=== PATIENT | male | born 1960 | race Caucasian/White ===

== ENCOUNTER 2018-12-20 21:01 | Emergency (ER) | payer MEDICARE ==
[2018-12-20 21:06] VITALS: TEMP 98.4
[2018-12-20] MEDS ORDERED: KETOROLAC 60 MG/2 ML VIAL IM STA (21:22)
--- NOTE | 2018-12-20 21:29 | ED ---
Upper Extremity HPI - General Chief Complaint: Extremity Injury, Upper Stated Complaint: Shoulder pain Time Seen by Provider: 12/20/18 21:09 Source: patient, family Mode of arrival: ambulatory Limitations: no limitations - History of Present Illness Initial Comments: Patient is a 58-year-old male presenting to the ER with complaints of left shoulder pain/neck pain 2 days. Patient states he has previous shoulder surgery for fractures about 30 years ago, but has been fine since. Patient states pain started about 2 days after picking [place] the airport. Describes the pain as achy, sharp at times. Patient states he is right-handed. Patient denies any falls or trauma to his shoulder. Patient states he has tried at home medications for the pain and a muscle relaxer with no improvement. Patient denies any other complaints at this time. Patient denies history of cardiac disease, numbness and tingling into the left arm/hand, shortness of breath, cough, nausea, vomiting, abdominal pain. - Related Data Previous Rx's Medication Instructions Recorded Cyclobenzaprine [Flexeril] 5 mg PO TID PRN #10 tablet 12/20/18 Ketorolac [Toradol] 10 mg PO Q8HR PRN #15 tab 12/20/18 Allergies Allergy/AdvReac Type Severity Reaction Status Date / Time Penicillins Allergy Rash/Hives Verified 12/20/18 21:06 Review of Systems ROS Statement: Those systems with pertinent positive or pertinent negative responses have been documented in the HPI. ROS Other: All systems not noted in ROS Statement are negative. Past Medical History Additional Past Medical History / Comment(s): depression anxiety History of Any Multi-Drug Resistant Organisms: None Reported Past Surgical History: Orthopedic Surgery Past Psychological History: Anxiety, Depression Smoking Status: Never smoker Past Alcohol Use History: Occasional Past Drug Use History: None Reported General Exam - General Exam Comments Initial Comments: GENERAL: Well-appearing, well-nourished and in no acute distress. HEAD: Atraumatic, normocephalic. EYES: Pupils equal round and reactive to light, extraocular movements intact, sclera anicteric, conjunctiva are normal. ENT: TMs normal, nares patent, oropharynx clear without exudates. Moist mucous membranes. NECK: Normal range of motion, supple without lymphadenopathy or JVD. LUNGS: Breath sounds clear to auscultation bilaterally and equal. No wheezes rales or rhonchi. HEART: Regular rate and rhythm without murmurs, rubs or gallops. ABDOMEN: Soft, nontender, normoactive bowel sounds. No guarding, no rebound. No masses appreciated. : Deferred EXTREMITIES: Patient has full range of motion of his left shoulder. Pain with palpation of the left upper and middle trap. Pulses are equal and bilateral. NEUROLOGICAL: Cranial nerves II through XII grossly intact. Normal speech, normal gait. PSYCH: Normal mood, normal affect. SKIN: Warm, Dry, normal turgor, no rashes or lesions noted. Limitations: no limitations Course Vital Signs 12/20/18 12/20/18 21:02 22:19 Temperature 98.4 F Pulse Rate 91 88 Respiratory 20 16 Rate Blood Pressure 177/90 158/100 O2 Sat by Pulse 99 98 Oximetry Medical Decision Making - Medical Decision Making Patient is a 58-year-old male complaining of left shoulder pain 2 days. Patient denies any recent injuries however has had previous history with his left shoulder. On exam patient is tender to palpation of the left upper and middle trapezius. Patient has pain with neck flexion. Pulses are equal bilateral. Patient denies any radiation to the left arm and numbness and tingling. Patient denies having cardiac history. Patient was given a Toradol injection which did decrease the pain. Patient was counseled on muscle spasms of the trapezius muscle. Patient was sent home with Toradol and a few days of muscle relaxer. Patient will follow up with PCP as needed for further management. Case discussed with Dr. Sena. Disposition Clinical Impression: Muscle spasm of left shoulder Disposition: HOME SELF-CARE Condition: Stable Instructions (If sedation given, give patient instructions): Shoulder Pain (ED) Additional Instructions: Please return to the Emergency Department if symptoms worsen or any other concerns. Use heat on the area. Follow-up with PCP if symptoms continue. Prescriptions: Cyclobenzaprine [Flexeril] 5 mg PO TID PRN #10 tablet PRN Reason: Muscle Spasm Ketorolac [Toradol] 10 mg PO Q8HR PRN #15 tab PRN Reason: Pain Is patient prescribed a controlled substance at d/c from ED?: No Referrals: Afshan River MD [Primary Care Provider] - 1-2 days
[2018-12-20 22:20] VITALS: BP 158/100; PULSE 88; RESP 16
== END 2018-12-20 22:20 | disposition home or self-care (01) ==
LOC: EC 21:01
DX: M62.838 Other muscle spasm (principal); M25.512 Pain in left shoulder; Z88.0 Allergy status to penicillin
CPT/HCPCS: 99283; 96372; J1885

== ENCOUNTER 2019-01-09 13:25 | Emergency (ER) | payer MEDICARE ==
--- NOTE | 2019-01-09 14:28 | ED ---
General Adult HPI - General Chief complaint: Recheck/Abnormal Lab/Rx Stated complaint: Abd pain, Body infection Time Seen by Provider: 01/09/19 14:12 Source: patient Mode of arrival: ambulatory - History of Present Illness Initial comments: Patient is a 58-year-old male presents emergency Department with blood in his semen. Patient states that has occurred a few times in the past. Patient states that both times he was treated for a testicular infection. Patient states he noticed the blood yesterday and complains of testicular discomfort rather than pain. Patient reports the discomfort is better when the testicles are elevated. Patient denies scrotal or penile rashes. Patient denies any penile discharge, hematuria, increased urgency or frequency, or obstructive uri nary symptoms. Patient denies any suprapubic, abdominal pain, back or flank pain. Patient denies any nausea or vomiting. Patient denies fever or headache. Patient denies taking medication to alleviate the symptoms. Patient states that he is in a monogamous relationship and is not concerned about STDs. Patient does have a family care physician but has not visited in few years. - Related Data Home Medications Medication Instructions Recorded Confirmed Escitalopram Oxalate [Lexapro] 10 mg PO DAILY 01/09/19 01/09/19 buPROPion HCL [Wellbutrin SR] 150 mg PO DAILY 01/09/19 01/09/19 Allergies Allergy/AdvReac Type Severity Reaction Status Date / Time Penicillins Allergy Rash/Hives Verified 01/09/19 15:18 Review of Systems ROS Statement: Those systems with pertinent positive or pertinent negative responses have been documented in the HPI. ROS Other: All systems not noted in ROS Statement are negative. Past Medical History Additional Past Medical History / Comment(s): depression anxiety History of Any Multi-Drug Resistant Organisms: None Reported Past Surgical History: Orthopedic Surgery Additional Past Surgical History / Comment(s): shoulder surgery Past Psychological History: Anxiety, Depression Smoking Status: Never smoker Past Alcohol Use History: Occasional Past Drug Use History: None Reported General Exam Limitations: no limitations General appearance: alert, in no apparent distress Head exam: Present: atraumatic, normocephalic, normal inspection Eye exam: Present: normal appearance, PERRL, EOMI Pupils: Present: normal accommodation ENT exam: Present: normal exam, mucous membranes moist, normal external ear exam Neck exam: Present: normal inspection, full ROM Respiratory exam: Present: normal lung sounds bilaterally Cardiovascular Exam: Present: regular rate, normal rhythm, normal heart sounds exam: Present: normal inspection, testicular tenderness (Right testicle on palpation), circumcision, other (Positive Phren's sign). Absent: urethral discharge, scrotal swelling, vertical testicular lie Extremities exam: Present: normal inspection, full ROM Back exam: Present: normal inspection, full ROM. Absent: tenderness, CVA tenderness (R), CVA tenderness (L) Neurological exam: Present: alert, oriented X3 Psychiatric exam: Present: normal affect, normal mood Skin exam: Present: warm, intact, normal color Course Vital Signs 01/09/19 01/09/19 01/09/19 13:43 15:41 16:00 Temperature 98.7 F 97.8 F Pulse Rate 18 L 75 93 Respiratory 181 H 19 18 Rate Blood Pressure 181/101 174/103 137/76 O2 Sat by Pulse 97 98 98 Oximetry Medical Decision Making - Medical Decision Making Patient is a 58-year-old male presents emergency Department with blood in his semen. UA showing only elevated red blood cells. Scrotal ultrasound is indicative of a varicocele on the left testicle as well as bilateral epididymal cyst. At this point I'm not suspecting an infection because the testicles are not red, tender or swollen. Also imaging is negative for infection as well. Patient advised to follow up with urology. Strict return parameters were thoroughly discussed with patient who is understanding and agreeable. Case discussed with physician. - Lab Data Lab Results 01/09/19 Range/Units 14:30 Urine Color Yellow Urine Appearance Clear (Clear) Urine pH 5.5 (5.0-8.0) Ur Specific [place] 1.014 (1.001-1.035) Urine Protein Negative (Negative) Urine Glucose (UA) Negative (Negative) Urine Ketones Negative (Negative) Urine Blood Moderate H (Negative) Urine Nitrite Negative (Negative) Urine Bilirubin Negative (Negative) Urine Urobilinogen <2.0 (<2.0) mg/dL Ur Leukocyte Esterase Negative (Negative) Urine RBC 161 H (0-5) /hpf Urine WBC <1 (0-5) /hpf Urine Mucus Rare H (None) /hpf Urine Sperm Rare (None) /hpf Disposition Clinical Impression: Blood in semen Disposition: HOME SELF-CARE Condition: Stable Additional Instructions: Please follow-up with urology. Please return to emergency department if symptoms worsen. Is patient prescribed a controlled substance at d/c from ED?: No Referrals: Afshan River MD [Primary Care Provider] - 1-2 days Isra Chauhan MD [STAFF PHYSICIAN] - 1-2 days Time of Disposition: 16:21
[2019-01-09 15:14] LABS: Appearance,Urine Clear (Clear); Bilirubin,Urine Negative (Negative); Blood,Urine Moderate (Negative); Color,Urine Yellow; Glucose,Urine (UA) Negative (Negative); Ketones,Urine Negative (Negative); Leukocyte Esterase,Urine Negative (Negative); Mucus,Urine Rare /hpf; Nitrite,Urine Negative (Negative); PH, Urine 5.5 (5.0-8.0); Protein,Urine Negative (Negative); RBC,Urine 161 /hpf (0-5); Specific Gravity,Urine 1.014 (1.001-1.035); Sperm,Urine Rare /hpf; Urobilinogen,Urine <2.0 mg/dL (<2.0); WBC,Urine <1 /hpf (0-5)
--- NOTE | 2019-01-09 15:44 | US ---
EXAMINATION TYPE: US scrotum with doppler. Grayscale and color Doppler Duplex imaging performed of t he scrotum. DATE OF EXAM: 01/09/2019 COMPARISON: NONE CLINICAL HISTORY: hematospermia EXAM MEASUREMENTS: TESTICLES: Right Testicle: 4.5 x 2.3 x 3.0 cm Left Testicle: 4.6 x 2.2 x 2.8 cm EPIDIDYMIS HEAD Right Epididymis: 1.5 cm, cyst noted measuring0.8 Left Epididymis: 1.1 cm, cyst noted measuring 0.6 Doppler performed to assess for testicular vascularity; good bilateral color flow and waveforms are s een. There is no evidence of testicular torsion. Presence of hydroceles: no Presence of varicoceles: Small left IMPRESSION: Small left varicocele is noted as well as bilateral benign epididymal cysts.
[2019-01-09 16:02] VITALS: RESP 18
[2019-01-09 16:38] VITALS: BP 186/99; PULSE 73; TEMP 97.9
[2019-01-10 16:18] LABS: N. gonorrhoeae,PCR Negative (Neg,Equiv); Neisseria Source Urine
[2019-01-10 16:20] LABS: C. trachomatis,PCR Negative (Neg,Equiv); Chlamydia trachomatis Source Urine
== END 2019-01-09 16:37 | disposition home or self-care (01) ==
LOC: EC 13:25
DX: R36.1 Hematospermia (principal); N50.3 Cyst of epididymis; I86.1 Scrotal varices; R10.9 Unspecified abdominal pain; F41.9 Anxiety disorder, unspecified; F32.9 Major depressive disorder, single episode, unspecified; Z98.890 Other specified postprocedural states; Z79.899 Other long term (current) drug therapy; Z88.0 Allergy status to penicillin
CPT/HCPCS: 76870; 81001; 87086; 87491; 87591; 93975; 99284

== ENCOUNTER 2019-06-28 13:01 | Emergency (ER) | payer MEDICARE ==
[2019-06-28 13:30] VITALS: PULSE 98; RESP 18; TEMP 98.6
[2019-06-28 14:05] VITALS: BP 176/133
--- NOTE | 2019-06-28 14:39 | ED ---
Skin/Abscess/FB HPI - General Chief complaint: Skin/Abscess/Foreign Body Stated complaint: lt leg injury/infection Time Seen by Provider: 06/28/19 13:33 Source: patient Mode of arrival: ambulatory Limitations: no limitations - History of Present Illness Initial comments: Patient is a 58-year-old male presenting to the emergency department with a wound on his left wall. Patient states he had a minor wound to his left wall in May. Patient states he has been cleaning it with peroxide as well as alcohol. Patient states approximately 3 days ago the wound did open up and now has mild drainage from the area. Patient states the redness around the room started approximate 2 days ago. Patient denies fever, chills, nausea, vomiting. Patient is not diabetic. Patient states he's been having a lot of stress with his family and his are being in a car accident. Patient states he just neglected this wound. Patient states he does not want to be admitted to the hospital. Patient has no other complaints at this time. Upon arrival to the ER, patient's BP was elevated however he is very anxious. Upon reevaluation it is improved. Rest of vitals are normal. - Related Data Home Medications Medication Instructions Recorded Confirmed Escitalopram Oxalate [Lexapro] 10 mg PO DAILY 01/09/19 01/09/19 buPROPion HCL [Wellbutrin SR] 150 mg PO DAILY 01/09/19 01/09/19 Previous Rx's Medication Instructions Recorded Cephalexin [Keflex] 500 mg PO Q6HR 10 Days #40 cap 06/28/19 Sulfamethox-Tmp 800-160Mg [Bactrim 1 each PO Q12HR #20 tab 06/28/19 Ds] Allergies Allergy/AdvReac Type Severity Reaction Status Date / Time Penicillins Allergy Rash/Hives Verified 06/28/19 13:27 Review of Systems ROS Statement: Those systems with pertinent positive or pertinent negative responses have been documented in the HPI. ROS Other: All systems not noted in ROS Statement are negative. Past Medical History Additional Past Medical History / Comment(s): depression anxiety History of Any Multi-Drug Resistant Organisms: None Reported Past Surgical History: Orthopedic Surgery Additional Past Surgical History / Comment(s): shoulder surgery Past Psychological History: Anxiety, Depression Smoking Status: Never smoker Past Alcohol Use History: Occasional Past Drug Use History: None Reported General Exam - General Exam Comments Initial Comments: GENERAL: Well-appearing, well-nourished and in no acute distress. HEAD: Atraumatic, normocephalic. EYES: Pupils equal round and reactive to light, extraocular movements intact, sclera anicteric, conjunctiva are normal. ENT: Moist mucous membranes. NECK: Normal range of motion, supple without lymphadenopathy or JVD. LUNGS: Breath sounds clear to auscultation bilaterally and equal. No wheezes rales or rhonchi. HEART: Regular rate and rhythm without murmurs, rubs or gallops. ABDOMEN: Soft, nontender, normoactive bowel sounds. No guarding, no rebound. No masses appreciated. EXTREMITIES: Normal range of motion, no pitting or edema. No clubbing or cyanosis. Neurovascular intact bilateral lower extremities. NEUROLOGICAL: Normal speech, normal gait. PSYCH: Normal mood, normal affect. SKIN: Warm, Dry, normal turgor. Patient has a 4 cm open wound to anterior left lower leg. There is mild surrounding erythema, no active drainage. Minimal pain with palpation around the wound. There is a large scab on top of the wound as well. Limitations: no limitations Course Vital Signs 06/28/19 06/28/19 13:27 14:04 Temperature 98.6 F Pulse Rate 98 Respiratory 18 18 Rate Blood Pressure 199/121 176/133 O2 Sat by Pulse 99 99 Oximetry Medical Decision Making - Medical Decision Making Patient is a 58-year-old male presenting with an open wound on the anterior left lower leg. Patient is not diabetic, vitals are normal. Patient has a 4 cm open wound in his left anterior wall. Wound is slightly erythematous, mild pain with palpation. I recommended blood work however patient declined at this time. Wound culture was taken and is pending at this time. Patient will be started on Bactrim and Keflex for cellulitis. Patient does not want be admitted to the hospital. The patient will follow up with his PCP. Patient is in agreement with this plan of care. Return parameters were discussed with the patient he verbalizes understanding. Case discussed with Dr. Sarah. Disposition Clinical Impression: Wound of left lower extremity, Cellulitis of left lower leg Disposition: HOME SELF-CARE Condition: Stable Instructions (If sedation given, give patient instructions): Cellulitis (ED) Additional Instructions: Please return to the Emergency Department if symptoms worsen or any other concerns. Take both antibiotics as prescribed. Follow-up with PCP. Prescriptions: Sulfamethox-Tmp 800-160Mg [Bactrim Ds] 1 each PO Q12HR #20 tab Cephalexin [Keflex] 500 mg PO Q6HR 10 Days #40 cap Is patient prescribed a controlled substance at d/c from ED?: No Referrals: Nate Steele [Primary Care Provider] - 1-2 days
== END 2019-06-28 14:51 | disposition home or self-care (01) ==
LOC: EC 13:01
DX: S81.802A Unspecified open wound, left lower leg, initial encounter (principal); L03.116 Cellulitis of left lower limb; F41.9 Anxiety disorder, unspecified; F32.9 Major depressive disorder, single episode, unspecified; Z79.899 Other long term (current) drug therapy; Z88.0 Allergy status to penicillin
CPT/HCPCS: 87070; 87077; 87186; 87205; 99283